=== PATIENT | male | born 1985 | race African-American/Black ===

== ENCOUNTER 2017-12-14 18:10 | Emergency (ER) | payer SELFPAY | END 2017-12-14 19:08 | disposition home or self-care (01) | LOC: ERS 18:10 | DX: K02.9 Dental caries, unspecified (principal); F17.210 Nicotine dependence, cigarettes, uncomplicated | CPT/HCPCS: 99282 ==

== ENCOUNTER 2019-12-26 16:55 | Emergency (ER) | payer OTHER, SELFPAY ==
[2019-12-26] MEDS ORDERED: Bicillin LA 1.2 MILLION UNITS/2 ML SYRINGE ONE (18:51)
[2019-12-27 12:48] LABS: SARS-CoV-2 MS2 Positive; SARS-CoV-2 N Gene Negative; SARS-CoV-2 S Gene Negative; SARS-CoV-2 orf1ab Negative
== END 2019-12-26 19:15 | disposition home or self-care (01) ==
LOC: ERS 16:55
DX: J02.0 Streptococcal pharyngitis (principal); F17.210 Nicotine dependence, cigarettes, uncomplicated
CPT/HCPCS: 87430; 87635; 96372; 99283; J0561; U0003